=== PATIENT | female | born 1960 | race Caucasian/White ===

== ENCOUNTER 2024-03-03 06:07 | Day surgery (SDC) | payer OTHER, SELFPAY ==
--- OUTSIDE RECORDS SUMMARY | 2024-02-09 08:58 | XMS_ITS ---
Author Organization [facility] Address [address] [place] [address] Care Team Providers Care Lab Systems Analyst Name Role Phone Carlotta Maria Eugenia Primary Care Provider Unavail able Kade Bills Jr Unavailable [phone] ALLERGIES Allergen (clinical drug ingredient) Drug/Non Drug Allergy documented on EMR Reaction Allergy Type Onset Date Status nitrapan (uncoded) Unknown Allergy A ctive ofloxacin floxin (uncoded) Unknown Allergy Act sarbjit REASON FOR VISIT Patient presents today for a COLON SCREENING MEDICATIONS Medication SIG (Take, Route, Frequency, Duration) Notes Start Date End Date Status Levothyroxine Sodium 150 MCG TAKE 1 TABL ET BY MOUTH DAILY Oral for 30 Active Simvastatin 40 MG 1 tablet in the even ing Orally Once a day for 30 day(s) Active Vitamin D Active Tylenol Active SOCIAL HISTORY Tobacco Use: Social History Observation Description Date Details (start date - stop date) Former Smoker NA - NA Sex Assigned At : Social History Observation Description Sex Assigned At Unknown Tobacco Use/Smoking Question Answer Notes Patient is a former smoker How long has it been since you last smoked? > 10 years Alcohol Screen Question Answer Notes Did you have a drink contain ing alcohol in the past year? Yes How often did you have a dri nk containing alcohol in the past year? 4 or more times a week (4 points) How many drinks did you have on a typical day when you were drinking in the past year? 1 or 2 drinks (0 point) How often did you have 6 or more drinks on one occasion in the past year? Never (0 point) Points 4 Interpretation Positive PROBLEMS Problem Type ICD Code Onset Dates Problem Status W/U Status Risk SNOMED Code Notes Problem Colon cancer screening (Z12.11) Active confirmed 016616345 Problem Lactose intolerance (E73.9) Active confirmed 077390059 VITAL SIGNS BMI 31.17 kg/m2 12/23/2023 Blood pressure systolic 00 mm Hg 12/23/19 24 Blood pressure diastolic 00 mm Hg 024 Height 5 ft 8 in in 12/23/2023 Weight 205 lbs 12/23/2023 Encounters Encounter Location Date Provider Diagnosis [facility] [address] [place] [address] 12/23/2023 Kade Bills Jr Colon cancer screening Z12.11 and Lactose intolerance E73.9 ASSESSMENTS Encounter Date Diagnosis Assessment Notes Treatment Notes Treatment Clinical Notes 12/23/2023 Colon cancer screening (ICD-10 - Z12.11) 12/23/2023 Lactose intolerance (ICD-10 - E73.9) Colon cancer screening material was printed PLAN OF TREATMENT Treatment Notes Assessment Notes Lactose intolerance Colon cancer screeni ng material was printed Future Test Test Name Order Date COLONOSCOPY 12/23/2023 Next Appt Details Follow Up: 1 Year, Reason: Provider Name:Kade marx Jr, 03/03/2024 07:30:00 AM, [address] [place] [address] , [place], [place], [phone], Progress Notes * Examination Category Sub-Category Detail Notes General Examination GENERAL APPEARANCE: in no ac [place] distress HEAD: normocephalic EYES: sclera non-icteric NECK/THYROID: no lymphadenopathy HEART: S1, S2 normal, no mu rmurs CHEST: normal shape and exp ansion LUNGS: clear to auscultatio n bilaterally ABDOMEN: soft, nontender, non distended, bowel sounds present, no organomegaly SKIN: anicteric EXTREMITIES: no clubbing, cyanosi s, or edema PSYCH: cognitive function i ntact ORAL CAVITY: mucosa moist
--- OUTSIDE RECORDS SUMMARY | 2024-02-09 08:59 | XMS_ITS | Patient Health Record ---
Author Organization [facility] Address [address] [place] [address] Care Team Providers Care Regulation Supervisor Name Role Phone Maria Eugenia Laguerre Primary Care Provider Unavail able Kade Bills Jr Unavailable ALLERGIES Allergen (clinical drug ingredient) Drug/Non Drug Allergy documented on EMR Reaction Allergy Type Onset Date Status nitrapan (uncoded) Unknown Allergy A ctive ofloxacin floxin (uncoded) Unknown Allergy Act sarbjit REASON FOR REFERRAL No Information MEDICATIONS Medication SIG (Take, Route, Frequency, Duration) [...] Problem Colon cancer screening (Z12.11) Active confirmed 832348908 Problem Lactose intolerance (E73.9) Active confirmed [id number] VITAL SIGNS Blood pressure diastolic 00 mm Hg 12/23/2023 Height 5 ft 8 in in 12/23/2023 Blood pressure systolic 00 mm Hg 12/23/2023 Weight 205 lbs 12/23/2023 BMI 31.17 kg/m2 12/23/2023 Encounters Encounter Location Date Provider Diagnosis [facility] [address] [place] [address] 12/23/2023 Kade Bills Jr Colon cancer screening Z12.11 and Lactose intolerance E73.9 ASSESSMENTS Encounter Date Diagnosis Assessment Notes Treatment Notes Treatment Clinical Notes 12/23/2023 Colon cancer screening (ICD-10 - Z12.11) 12/23/2023 Lactose intolerance (ICD-10 - E73.9) Colon cancer screening material was printed PLAN OF TREATMENT Future Test Test Name Order Date COLONOSCOPY 12/23/2023 Next Appt Details Provider Name:Kade marx Jr, 03/03/2024 07:30:00 AM, [address] [place] [address] , [place], [place], [phone], Insurance Providers Payer Name Payer Address Payer Phone Subscriber Number Group Number Insured Name Patient Relationship to Insured Coverage Start Date Coverage End Date [facility] Insurance ([employer]) [address] [place] [id number] CORKY GLASER Self - patient is the insured MEDICAL (GENERAL) HISTORY Medical History History ICD Code Colonoscopy 11/10, sessile serrated adeno ma, five-year followup Asthma, mild intermittent Zhou's thyroiditis/hypothyroidism IBS/lactose intolerance Hyperlipidemia Surgical History Surgery Date(Month/Year) hysterectomy, uterine cancer 2013
[2024-03-01 11:57] VITALS: BMI 31.2
--- NOTE | 2024-03-02 09:02 | P.CONAN_ITS ---
Documented by User: Briana Mart NP 03/02/24 09:02 HPI - Anesthesia Eval Consult details Narrative: 63yo F for Colonoscopy [facility] Past Medical History Medical History Uterine cancer Elevated cholesterol Lactose intolerance IBS (irritable bowel syndrome) Hypothyroid Asthma Surgical History Surgical History (Updated 03/03/24 @ 06:44 by Jaye Constantino RN) Hx of breast lump removal Hx of hysterectomy H/O colonoscopy Social History Social History (Updated 03/01/24 @ 11:58 by Christina Salinas RN) Household Members: Spouse Patient Tobacco Use Status: Former Tobacco user Tobacco use type: Cigarette Use of substances other than those prescribed or required for medical reasons: No Are you DNR?: No Advance Directives: No Advance Directives Information Provided: Yes Recently lost weight without trying: No Meds Allergies Allergy/AdvReac Type Severity Reaction Status Date / Time oxybutynin [From Ditropan] Allergy Unknown Verified 03/03/24 06:42 ofloxacin [From Floxin] AdvReac Unknown Nausea and Verified 03/03/24 06:42 Vomiting Home Medications ?Medication ?Instructions ?Recorded ?Confirmed ?Last Taken ?Type atorvastatin 40 mg tablet 40 mg PO DAILY 03/01/24 03/03/24 Unknown History levothyroxine 150 mcg tablet 150 mcg PO DAILY 03/01/24 03/03/24 Unknown History albuterol 90 mcg-budesonide 80 2 inh inhalation DAILY PRN 03/03/24 03/03/24 Unknown History mcg/actuation HFA aerosol inhaler Shortness Of Breath Or Wheezing (Airsupra) Exam Height,Weight and Vital Signs: Height 5 ft 8 in Weight 92.986 kg Assessment and Plan Assessment Anesthesia Assessment: Chart Reviewed Documented by User: Con Jean MD 03/03/24 07:20 [facility] Past Medical History Medical History Uterine cancer Elevated cholesterol Lactose intolerance IBS (irritable bowel syndrome) Hypothyroid Asthma Family History Family history of problems with anesthesia: No Surgical History Surgical History (Updated 03/03/24 @ 06:44 by Jaye Constantino RN) Hx of breast lump removal Hx of hysterectomy H/O colonoscopy History of Problems with Anesthesia: No Social History Social History (Updated 03/01/24 @ 11:58 by Christina Salinas RN) Household Members: Spouse Patient Tobacco Use Status: Former Tobacco user Tobacco use type: Cigarette Use of substances other than those prescribed or required for medical reasons: No Are you DNR?: No Advance Directives: No Advance Directives Information Provided: Yes Recently lost weight without trying: No Meds Allergies Allergy/AdvReac Type Severity Reaction Status Date / Time oxybutynin [From Ditropan] Allergy Unknown Verified 03/03/24 06:42 ofloxacin [From Floxin] AdvReac Unknown Nausea and Verified 03/03/24 06:42 Vomiting Home Medications ?Medication ?Instructions ?Recorded ?Confirmed ?Last Taken ?Type atorvastatin 40 mg tablet 40 mg PO DAILY 03/01/24 03/03/24 Unknown History levothyroxine 150 mcg tablet 150 mcg PO DAILY 03/01/24 03/03/24 Unknown History albuterol 90 mcg-budesonide 80 2 inh inhalation DAILY PRN 03/03/24 03/03/24 Unknown History mcg/actuation HFA aerosol inhaler Shortness Of Breath Or Wheezing (Airsupra) Exam Airway Mallampati Class: III TM Dist: >3cm Assessment and Plan Assessment Anesthesia Assessment: Anesthesia Plan Discussed Final Anesthetic Review Family History of Problems with Anesthesia: No History of Problems with Anesthesia: No NPO: Yes ASA Class: II Final Preanesthetic Review: No Changes in Pt Med Stat, Meds/Allgs Chart Reviewed, Consent Obtained/Reviewed and Anes Risks/Benef Reviewed Patient Risk: Low Procedure Risk: Low Anesthetic Plan Anesthetic Plan: TIVA Disposition: Standard PACU
[2024-03-03 06:51] VITALS: BP 119/62; PULSE 77; RESP 15; TEMP 36.5; O2SAT 98
[2024-03-03] MEDS: Lactated Ringers 1,000 ML 100 ML IVCONT (07:11)
--- NOTE | 2024-03-03 07:28 | MHC.SHP ---
Pre-Procedural Eval Section A - 24 Hr Update-Section A only Date of Service: 03/03/24 Section B - Complete if H&P > 30 days Chief Complaint: Encounter for screening for malignant neoplasm of Details of Present Illness: see H&P no changes Relevant Family History (Specify if Yes): No Relevant Social History: None Present Medications: see Short Stay Collaborative assessment Medical History: No relevant PMH History of Previous Operations: No relevant previous surgery Allergies: Allergies Allergy/AdvReac Type Severity Reaction Status Date / Time oxybutynin [From Ditropan] Allergy Unknown Verified 03/03/24 06:42 ofloxacin [From Floxin] AdvReac Unknown Nausea and Verified 03/03/24 06:42 Vomiting Review of Systems Sugical H&P ROS: Negative: Constitution, Cardiovascular, Respiratory, Neurological, Psychiatric, Hem-Onc, Allergic/Immunologic, Gastrointestinal, Genitourinary, Musculoskeletal, Integumentary, Endocrine and Eyes/Ears/Nose/Throat Exam Surgical H&P Exam: Normal: HEENT, Normal: Heart, Normal: Lungs, Normal: Extremities, Normal: Abdomen, Normal: Skin and Normal: Neurological Plan Diagnosis/Plan: Unchanged I have reviewed the history and physical and performed a pertinent physical examination on my patient. No changes have occurred unless specified. Time Spent With Patient Time: Total time managing care of this patient today ____ minutes.
[2024-03-03 08:06] VITALS: BP 104/53; PULSE 77; RESP 14; TEMP 36.2; O2SAT 96
[2024-03-03 08:22] VITALS: BP 106/65; PULSE 72; RESP 17; TEMP 36.2; O2SAT 97
--- NOTE | 2024-03-03 08:33 | OP_ITS ---
DATE OF SERVICE: 03/03/2024 SURGEON: Kade Bills MD INDICATIONS: Colon cancer screening and prior history of adenomatous colon polyps PREOPERATIVE DIAGNOSIS: POSTOPERATIVE DIAGNOSIS: PROCEDURE PERFORMED: Colonoscopy to the terminal ilium. ESTIMATED BLOOD LOSS: COMPLICATIONS: ANESTHESIA: Monitored anesthesia care. ASSISTANTS: SPECIMENS: DESCRIPTION OF PROCEDURE: A history and physical was performed. The risks and benefits of the procedure were explained to the patient, and informed consent was obtained. The patient was placed in the left lateral decubitus position. A digital rectal exam was performed and was found to be normal. The Olympus pediatric video colonoscope was introduced into the rectum and advanced to the cecum. The cecum was identified by transillumination, palpation, and identification of ileocecal valve. Examination was performed. The scope was removed. She tolerated the procedure well and was taken to the recovery area in stable condition. FINDINGS: The terminal ileum was examined and appeared normal. The visualized colonic mucosa was normal. The colon was somewhat redundant. No polyps were identified. Retroflexed examination showed small internal hemorrhoids. The quality of prep was good. IMPRESSION: Normal colonoscopy. RECOMMENDATION: 1. Follow up as needed. 2. Repeat colonoscopy is recommended in 10 years for average-risk individuals. Her procedure could be done in 5 years because of her family history of colon polyps in her mother. MD JAMES Izaguirre/BRIAN / [id number]
== END 2024-03-03 08:30 | disposition home or self-care (01) ==
PROVIDERS: PCP Internal Medicine; Visit Provider Internal Medicine Gastroenterology
PROC: 0DJD8ZZ Inspection of Lower Intestinal Tract, Via Natural or Artificial Opening Endoscopic (ICD-10-PCS; CPT 45378; principal; 2024-03-03 07:30)
DX: Z12.11 Encounter for screening for malignant neoplasm of colon (principal); K64.8 Other hemorrhoids; Z86.0101 Personal history of adenomatous and serrated colon polyps; Z83.719 Family history of colon polyps, unspecified; E78.5 Hyperlipidemia, unspecified; J45.20 Mild intermittent asthma, uncomplicated; E06.3 Autoimmune thyroiditis; K58.9 Irritable bowel syndrome, unspecified; E73.9 Lactose intolerance, unspecified; Z87.891 Personal history of nicotine dependence; Z79.02 Long term (current) use of antithrombotics/antiplatelets; Z79.899 Other long term (current) drug therapy
CPT/HCPCS: 45378; J2003; J2704